=== PATIENT | male | born 1970 | race Caucasian/White ===

== ENCOUNTER 2020-08-23 13:38 | Observation (INO) | payer OTHER ==
[2020-08-23] MEDS ORDERED: HYDROmorphone 1 MG/ML Syringe IVPUSH ONE (14:00)
[2020-08-23] MEDS ORDERED: Propofol 200 MG/20 ML SDV ONE (14:18)
[2020-08-23] MEDS ORDERED: Midazolam 1 MG/ML 2 ML SDV ONE (14:18)
[2020-08-23] MEDS ORDERED: fentaNYL 250 MCG/5 ML SDV ONE ×2 (14:19→15:19)
[2020-08-23] MEDS ORDERED: HYDROmorphone 1 MG/ML Syringe IVPUSH PRN (14:24)
[2020-08-23] MEDS ORDERED: Sodium Chloride 0.9% 10 ML Syringe FLUSH PRN (14:24)
[2020-08-23] MEDS ORDERED: Sodium Chloride 0.9% 2.5 ML Syringe FLUSH PRN (14:24)
[2020-08-23] MEDS ORDERED: diphenhydrAMINE 50 MG/ML SDV IVPUSH PRN (14:24)
[2020-08-23] MEDS ORDERED: Sodium Chloride 0.9% 10 ML SDV IV PRN (14:24)
[2020-08-23] MEDS ORDERED: Ondansetron 4 MG/2 ML SDV IVPUSH PRN (14:24)
[2020-08-23] MEDS ORDERED: fentaNYL 100 MCG/2 ML SDV IVPUSH PRN (14:26)
[2020-08-23] MEDS ORDERED: hydrALAZINE 20 MG/ML SDV IVPUSH PRN (14:26)
[2020-08-23] MEDS ORDERED: Acetaminophen 1,000 MG in Premix Bag 1 BAG IV PRN (14:26)
--- NOTE | 2020-08-23 14:27 | PCM.HP.2 ---
H&P History of Present Illness - General Date of Service: 08/23/20 Admit Problem/Dx: Admission Diagnosis/Problem Admission Diagnosis/Problem Appendicitis Source of Information: Patient History Limitations: Reports: No Limitations - History of Present Illness Initial Comments - Free Text/Narative: Patient is a 50 year old male who presents with acute appendicitis. He was not feeling well yesterday and last evening he developed lower abdominal pain. He then became nauseated and started vomiting. He denies fevers and chills but complains of malaise. The pain is made worse with movement. He presented to an OSH. He had a leukocytosis with a left shift. He had elevated glucose and mildly elevated BUN. He had a CT scan that revealed acute appendicitis with no evidence of perforation. He was given IV zosyn and transferred here for surgery. - Related Data Allergies/Adverse Reactions: Allergies Allergy/AdvReac Type Severity Reaction Status Date / Time No Known Drug Allergies Allergy Other Verified 08/23/20 14:05 Home Medications: Home Meds hydroCHLOROthiazide [Hydrochlorothiazide] 25 mg PO DAILY 08/23/20 [History] lisinopriL [Lisinopril] 40 mg PO BID 08/23/20 [History] Past Medical History Cardiovascular History: Reports: Other (See Below) (Hypertension) Respiratory History: Reports: None Gastrointestinal History: Reports: None - Past Surgical History HEENT Surgical History: Reports: Other (See Below) (wisdom teeth removal) Social & Family History - Family History Cardiac: Reports: CAD, Hypertension Neurological: Reports: CVA - Tobacco Use Tobacco Use Status *Q: Never Tobacco User - Alcohol Use Alcohol Use History: Yes Days Per Week of Alcohol Use: 1 Number of Drinks Per Day: 3 Total Drinks Per Week: 3 H&P Review of Systems - Review of Systems: Review Of Systems: Comprehensive ROS is negative, except as noted in HPI. Exam - Exam Exam: See Below - Vital Signs Vital Signs: Last Vital Signs Temp 37.4 C 08/23/20 13:45 Pulse 114 H 08/23/20 13:45 Resp 18 08/23/20 13:45 BP 161/104 H 08/23/20 13:45 Pulse Ox 94 L 08/23/20 13:45 - Exam General: Alert, Oriented, Cooperative HEENT: Conjunctiva Clear, Mucosa Moist & [place], Posterior Pharynx Clear Neck: Supple, Trachea Midline Lungs: Clear to Auscultation, Normal Respiratory Effort Cardiovascular: Regular Rate, Regular Rhythm GI/Abdominal Exam: Soft, No Distention, Guarding (RLQ), Rebound (RLQ), Tender (RLQ) Extremities: Normal Inspection Sepsis Event Note - Evaluation Sepsis Screening Result: Sepsis Risk - Focused Exam Vital Signs: Vital Signs Temp Pulse Resp BP Pulse Ox 08/23/20 13:45 37.4 C 114 H 18 161/104 H 94 L - Problem List (1) Acute appendicitis SNOMED Code(s): 88467768 ICD Code: K35.80 - UNSPECIFIED ACUTE APPENDICITIS Status: Acute Current Visit: Yes Problem List Initiated/Reviewed/Updated: Yes Orders Last 24hrs: Active Orders 24 hr Category Date Time Status Patient Status [ADT] Routine ADT 08/23/20 14:24 Ordered Influenza Vaccine Charge [RC] .DISCHARGE Care 08/23/20 14:19 Active Notify Provider Vital Signs [RC] PRN Care 08/23/20 14:25 Ordered Oxygen Therapy [RC] PRN Care 08/23/20 14:24 Ordered RT Incentive Spirometry [RC] Q1HWA Care 08/23/20 14:24 Ordered Up ad Gloria [RC] ASDIRECTED Care 08/23/20 14:24 Ordered Vital Signs [RC] PER UNIT ROUTINE Care 08/23/20 14:24 Ordered NPO [Nothing Per Oral Diet] [DIET] Diet 08/23/20 Dinner Active CORONAVIRUS COVID-19 MALI [MOLEC] Stat Lab 08/23/20 13:36 Received Acetaminophen [Ofirmev] 1,000 mg Med 08/23/20 14:26 Ordered Premix Bag 1 bag IV Q6H Acetaminophen/oxyCODONE [Percocet 325-5 MG] Med 08/23/20 14:24 Ordered 2 tab PO Q4H PRN HYDROmorphone [Dilaudid] Med 08/23/20 14:24 Ordered 0.5 mg IVPUSH Q1H PRN Lactated Ringers @ 125 MLS/HR(1000ml) Med 08/23/20 14:30 Ordered Lactated Ringers [Ringers, Lactated] 1,000 ml IV ASDIRECTED Ondansetron [Zofran] Med 08/23/20 14:24 Ordered 4 mg IVPUSH Q6H PRN Pharmacy to Dose - InFluenza V [Pharmacy to Dose - Med 08/23/20 14:19 Once InFluenza Vaccine] 1 each IM ONETIME ONE Sodium Chloride 0.9% [Normal Saline] Med 08/23/20 14:24 Ordered 10 ml IV ASDIRECTED PRN Sodium Chloride 0.9% [Saline Flush] Med 08/23/20 14:24 Ordered 10 ml FLUSH ASDIRECTED PRN Sodium Chloride 0.9% [Saline Flush] Med 08/23/20 14:24 Ordered 2.5 ml FLUSH ASDIRECTED PRN diphenhydrAMINE [Benadryl] Med 08/23/20 14:24 Ordered 50 mg IVPUSH Q4H PRN fentaNYL [Sublimaze] Med 08/23/20 14:26 Ordered 50 mcg IVPUSH Q5M PRN hydrALAZINE [Apresoline] Med 08/23/20 14:26 Ordered 10 mg IVPUSH Q2H PRN Peripheral IV Insertion Adult [OM.PC] Urgent Oth 08/23/20 14:24 Ordered Resuscitation Status Routine Resus Stat 08/23/20 14:24 Ordered Medication Orders Influenza Virus Vaccine (Pharmacy To Dose - Influenza Vaccine) 1 each IM ONETIME ONE Stop: 08/23/20 14:20 Assessment/Plan Comment:: The patient and I discussed the pathophysiology of acute appendicitis. I explained the need for an appendectomy. I will attempt this laparoscopically but convert to open should I be unable to perform it safely. We discussed the post operative care regarding ruptured vs non-ruptured appendicitis. I discussed the risks including bleeding infection or damage to surrounding structures. He verbalized understanding and wishes to proceed.
[2020-08-23] MEDS ORDERED: Lactated Ringers 1,000 ML IV SCH ×2 (14:30→14:45)
[2020-08-23] MEDS ORDERED: FLU Vacc QS2020-21 36MOS UP/PF 60 MCG/0.5 ML Syringe IM ONE (14:30)
[2020-08-23] MEDS ORDERED: Bupivacaine 0.5% 10 ML SDV ONE (14:44)
[2020-08-23] MEDS ORDERED: Octyl 2-Cyanoacrylate 1 Tube ONE (14:44)
[2020-08-23] MEDS ORDERED: Naloxone 0.4 MG/ML Syringe ONE (16:05)
--- NOTE | 2020-08-23 16:19 | PCM.OPNOTE ---
- General Post-Op/Procedure Note Date of Surgery/Procedure: 08/23/20 Operative Procedure(s): Laparoscopic appendectomy Findings: grossly enlarged and inflamed appendix. Not ruptured. Pre Op Diagnosis: Appendicitis Post-Op Diagnosis: same Anesthesia Technique: General ET Tube Primary Surgeon: Kareen Ball Fluid Replacement, Intraop: 1,200 Output, Urine Amount: 1,000 EBL in mLs: 10 Condition: Good Free Text/Narrative:: Intake & Output 08/23/20 08/23/20 08/23/20 06:59 14:59 22:59 Output Total 1000 Balance -1000
--- NOTE | 2020-08-23 16:48 | PCM.POSTAN ---
POST ANESTHESIA ASSESSMENT - MENTAL STATUS Mental Status: Alert - VITAL SIGNS Vital Signs: Last Vital Signs Temp 37.4 C 08/23/20 13:45 Pulse 114 H 08/23/20 13:45 Resp 18 08/23/20 13:45 BP 161/104 H 08/23/20 13:45 Pulse Ox 94 L 08/23/20 13:45 - RESPIRATORY Respiratory Status: Respiratory Rate WNL - CARDIOVASCULAR CV Status: Pulse Rate WNL - GASTROINTESTINAL GI Status: No Symptoms - POST OP HYDRATION Hydration Status: Adequate & Stable
[2020-08-23] MEDS: Lisinopril 10 MG Tab PO SCH ×2 (17:16→22:09)
[2020-08-23] MEDS: Acetaminophen/oxyCODONE 325-5 MG Tab PO PRN (20:30)
[2020-08-23] MEDS ORDERED: Ketorolac 10 MG Tab PO PRN (22:00)
--- NOTE | 2020-08-23 23:58 | OR ---
SURGEON: KAREEN BALL MD DATE OF PROCEDURE: 08/23/2020 PREOPERATIVE DIAGNOSIS: Acute appendicitis. POSTOPERATIVE DIAGNOSIS: Acute appendicitis. PROCEDURE PERFORMED: Laparoscopic appendectomy. PRIMARY SURGEON: Kareen Blal MD ANESTHESIA: General endotracheal anesthesia. FLUIDS: 1200 mL crystalloid. URINE OUTPUT: 1000 mL. ESTIMATED BLOOD LOSS: 10 mL. FINDINGS: Grossly enlarged and inflamed appendix with no evidence of rupture. COMPLICATIONS: None. INDICATIONS: The patient is a 50-year-old male who presented to an outside emergency room with 1 day of abdominal pain. Workup revealed acute appendicitis. The patient and I discussed the pathophysiology of appendicitis and the need for an appendectomy. I explained I would attempt this laparoscopically, but convert to open should I be unable to perform it safely. I explained the expected perioperative course as well as the risks including bleeding, infection, or damage to surrounding structures. The patient verbalized understanding and wishes to proceed. PROCEDURE IN DETAIL: The patient was brought into the OR and placed on the OR table in supine position. A time-out was completed verifying the patient's name, age, date of , allergies, and procedure to be performed. General endotracheal anesthesia was induced. The left arm was tucked to the patient's side and a Duarte catheter placed. The abdomen was prepped and draped in usual standard fashion. I anesthetized an area 2 fingerbreadths below the left subcostal margin in the midclavicular line with 0.5% Marcaine plain. An 11 blade was used to make an incision in this area. Using a 5 mm optical trocar, I gained entry into the left upper quadrant under direct visualization. All layers of the abdominal wall were visualized upon entry. A 5 mm 30-degree scope was inserted into the abdomen and the abdomen was insufflated. I inspected the area underneath my initial trocar placement. No damage to surrounding structures was noted. A 5 mm trocar was placed just left and lateral to the umbilicus. A 12 mm trocar was placed under direct visualization in the left lower quadrant. The patient was placed into Trendelenburg position and airplaned slightly to the left. I turned my attention to the right lower quadrant. I had reviewed the patient's preoperative CT scan and the appendix appeared retrocecal. I identified the cecum and followed the tenia down to the base of the appendix. The appendix was retrocecal. I attempted to identify the tip of the appendix and bring it more anterior. However, I was unable to. Instead, I turned my attention to the base of the appendix. Using a [place] dissector, I created a window between the appendiceal mesentery and the base of the appendix. After doing this, I was then able to take Harmonic scalpel device and take down the appendiceal mesentery from proximal to distal. Once I had created a large enough window, an endoscopic stapling device was brought into the field. I stapled and transected across the base of the appendix using a 45 mm blue load of ceci. I then grasped the proximal appendix, elevated it, and continued my dissection along the appendiceal mesentery using the Harmonic scalpel device. Once the appendix was completely freed from the appendiceal mesentery, it was placed in an Endo Catch bag and removed through the 12 mm port site. I inspected the cut edge of my appendiceal mesentery and the staple line. The staple line appeared to be intact. The cut edge of the appendiceal mesentery was slightly oozy, but there was no sae bleeding. A piece of Surgicel was laid along this. This achieved hemostasis. I then turned my attention to the 12 mm trocar site. The 12 mm trocar was removed and I closed the fascia at the site with an interrupted 0 Vicryl suture using a Goyo-Gina device. The 5 mm trocars were removed under direct visualization and the abdomen allowed to desufflate. The 12 mm trocar site was closed with interrupted 3-0 Vicryl in the subcutaneous fat layer and the skin was closed with a running 4-0 Monocryl stitch. The 5 mm trocar sites were closed with running 4-0 Monocryl sutures. Dermabond and sterile dressings were applied. All counts were complete and correct at the end of the case. The patient was extubated and taken to the PACU in stable condition. ELNIA / ORACIO /[id number]
[2020-08-24] MEDS: Ketorolac 10 MG Tab PO SCH ×3 (08:11→20:52)
[2020-08-24] MEDS: Lisinopril 10 MG Tab PO SCH ×2 (08:13→20:52)
[2020-08-24] MEDS: Lactated Ringers 1,000 ML IV SCH ×4 (08:18→23:14)
[2020-08-24] MEDS: Piperacillin/Tazobactam 3.375 GM in Sodium Chloride 0.9% 50 ML IV SCH ×3 (09:29→20:50)
--- NOTE | 2020-08-24 09:34 | PCM.SURGPN ---
- General Info Date of Service: 08/24/20 Date of Surgery/Procedure: 08/23/20 POD#: 1 - Review of Systems General: Reports: Fever, Weakness, Fatigue, Night Sweats Pulmonary: Reports: No Symptoms Cardiovascular: Reports: No Symptoms Gastrointestinal: Reports: Abdominal Pain (along incisions ). Denies: Flatus, Nausea, Vomiting Genitourinary: Reports: No Symptoms Musculoskeletal: Reports: No Symptoms Skin: Reports: No Symptoms - Patient Data Vitals - Most Recent: Last Vital Signs Temp 38.9 C H 08/24/20 07:55 Pulse 117 H 08/24/20 07:55 Resp 16 08/24/20 07:55 BP 107/61 08/24/20 08:13 Pulse Ox 94 L 08/24/20 07:55 Weight - Most Recent: 100.2 kg I&O - Last 24 Hours: Intake & Output 08/23/20 08/24/20 08/24/20 22:59 06:59 14:59 Intake Total 2550 500 Output Total 2000 750 Balance 550 -250 Lab Results Last 24 Hrs: Laboratory Results - last 24 hr 08/23/20 08/24/20 Range/Units 13:36 08:23 WBC 13.80 H (4.0-11.0) K/uL RBC 4.84 (4.50-5.90) M/uL Hgb 13.9 (13.0-17.0) g/dL Hct 40.5 (38.0-50.0) % MCV 83.7 (80.0-98.0) fL MCH 28.7 (27.0-32.0) pg MCHC 34.3 (31.0-37.0) g/dL RDW Std Deviation 39.7 (28.0-62.0) fl RDW Coeff of Igor 13 (11.0-15.0) % Plt Count 214 (150-400) K/uL MPV 9.30 (7.40-12.00) fL Nucleated RBC % 0.0 /100WBC Nucleated RBCs # 0 K/uL SARS-CoV-2 RNA (MALI) NEGATIVE (NEGATIVE) Med Orders - Current: Current Medications Diphenhydramine HCl (Benadryl) 50 mg IVPUSH Q4H PRN PRN Reason: Itching Hydralazine HCl (Apresoline) 10 mg IVPUSH Q2H PRN PRN Reason: Hypertension Hydromorphone HCl (Dilaudid) 0.5 mg IVPUSH Q1H PRN PRN Reason: Pain (severe 7-10) Lactated Ringer's (Ringers, Lactated) 1,000 mls @ 1,000 mls/hr IV .BOLUS [facility] Last Admin: 08/24/20 08:18 Dose: 1,000 mls/hr Documented by: Piperacillin Sod/Tazobactam (Sod 3.375 gm/ Sodium Chloride) 50 mls @ 100 mls/hr IV Q6H [facility] Lactated Ringer's (Ringers, Lactated) 1,000 mls @ 125 mls/hr IV ASDIRECTED [facility] Ketorolac Tromethamine (Toradol) 10 mg PO Q6H [facility] Stop: 08/29/20 07:46 Last Admin: 08/24/20 08:11 Dose: 10 mg Documented by: Lisinopril (Prinivil) 40 mg PO BID [facility] Last Admin: 08/24/20 08:13 Dose: 40 mg Documented by: Ondansetron HCl (Zofran) 4 mg IVPUSH Q6H PRN PRN Reason: Nausea/Vomiting Oxycodone/Acetaminophen (Percocet 325-5 Mg) 2 tab PO Q4H PRN PRN Reason: Pain (moderate 4-6) Last Admin: 08/23/20 20:30 Dose: 2 tab Documented by: Sodium Chloride (Saline Flush) 10 ml FLUSH ASDIRECTED PRN PRN Reason: Keep Vein Open Sodium Chloride (Saline Flush) 2.5 ml FLUSH ASDIRECTED PRN PRN Reason: Keep Vein Open Sodium Chloride (Normal Saline) 10 ml IV ASDIRECTED PRN PRN Reason: IV Use Discontinued Medications Bupivacaine HCl (Sensorcaine-Mpf 0.5%) Confirm Administered Dose 10 ml .ROUTE .STK-MED ONE Stop: 08/23/20 14:45 Fentanyl (Sublimaze) Confirm Administered Dose 250 mcg .ROUTE .STK-MED ONE Stop: 08/23/20 14:20 Fentanyl (Sublimaze) 50 mcg IVPUSH Q5M PRN PRN Reason: Pain Fentanyl (Sublimaze) Confirm Administered Dose 250 mcg .ROUTE .STK-MED ONE Stop: 08/23/20 15:20 Hydromorphone HCl (Dilaudid) 0.5 mg IVPUSH ONETIME ONE Stop: 08/23/20 14:01 Last Admin: 08/23/20 14:29 Dose: 0.5 mg Documented by: Lactated Ringer's (Ringers, Lactated) 1,000 mls @ 125 mls/hr IV ASDIRECTED [facility] Acetaminophen 1,000 mg/ Premix 100 mls @ 400 mls/hr IV Q6H PRN PRN Reason: Pain Lactated Ringer's (Ringers, Lactated) 1,000 mls @ 125 mls/hr IV ASDIRECTED [facility] Influenza Virus Vaccine (Pharmacy To Dose - Influenza Vaccine) 1 each IM ONETIME ONE Stop: 08/23/20 14:20 Influenza Virus Vaccine (Afluria Quad (3yr Up)) 60 mcg IM .ONCE ONE Stop: 08/23/20 14:31 Ketorolac Tromethamine (Toradol) 10 mg PO Q6H PRN PRN Reason: Pain Stop: 08/28/20 22:01 Midazolam HCl (Versed 1 Mg/Ml) Confirm Administered Dose 2 mg .ROUTE .STK-MED ONE Stop: 08/23/20 14:19 Naloxone HCl (Narcan) Confirm Administered Dose 0 mg .ROUTE .STK-MED ONE Stop: 08/23/20 16:06 Octyl Cyanoacrylate (Dermabond Advance) Confirm Administered Dose 1 applic .ROUTE .STK-MED ONE Stop: 08/23/20 14:45 Propofol (Diprivan 20 Ml) Confirm Administered Dose 200 mg .ROUTE .STK-MED ONE Stop: 08/23/20 14:19 - Exam Wound/Incisions: Dressing Dry and Intact Quality Assessment: Supplemental Oxygen General: Alert, Oriented, Cooperative HEENT: Pupils Equal Lungs: Clear to Auscultation, Normal Respiratory Effort Cardiovascular: Tachycardia GI/Abdominal Exam: Soft, Non-Tender, Distended Extremities: Normal Inspection Skin: Warm, Dry, Intact Neurological: No New Focal Deficit Psy/Mental Status: Alert, Normal Affect, Normal Mood Sepsis Event Note - Evaluation Sepsis Screening Result: Sepsis Risk - Focused Exam Vital Signs: Vital Signs Temp Pulse Resp BP BP Pulse Ox 08/24/20 08:13 107/61 08/24/20 07:55 38.9 C H 117 H 16 107/61 94 L 08/24/20 04:00 37.3 C 111 H 16 106/58 L 95 08/23/20 22:37 36.5 C 118 H 18 94/54 L 96 08/23/20 22:09 92/55 L 08/23/20 21:35 37.6 C 124 H 16 88/54 L 94 L - Problem List & Annotations (1) Acute appendicitis SNOMED Code(s): 70454219 Code(s): K35.80 - UNSPECIFIED ACUTE APPENDICITIS Status: Acute Current Visit: Yes Qualifiers: Acute appendicitis type: with localized peritonitis Appendicitis gangrene presence: without gangrene Appendicitis perforation presence: without perforation Appendicitis abscess presence: without abscess Qualified Code(s): K35.30 - Acute appendicitis with localized peritonitis, without perforation or gangrene - Problem List Review Problem List Initiated/Reviewed/Updated: Yes - My Orders Last 24 Hours: Active Orders 24 hr Category Date Time Status Patient Status [ADT] Routine ADT 08/24/20 08:27 Active Influenza Vaccine Charge [RC] .DISCHARGE Care 08/23/20 14:19 Active Notify Provider Vital Signs [RC] PRN Care 08/23/20 14:25 Active Overnight Pulse Oximetry [RC] Click to Edit Care 08/23/20 16:49 Active Oxygen Therapy [RC] PRN Care 08/23/20 14:24 Active Pulse Oximetry [RC] ASDIRECTED Care 08/23/20 16:48 Active RT Incentive Spirometry [RC] Q1HWA Care 08/23/20 14:24 Active Up ad Gloria [RC] ASDIRECTED Care 08/23/20 14:24 Active Vital Signs [RC] Q4H Care 08/23/20 14:24 Active Regular Diet [DIET] Diet 08/23/20 Dinner Active Acetaminophen/oxyCODONE [Percocet 325-5 MG] Med 08/23/20 14:24 Active 2 tab PO Q4H PRN HYDROmorphone [Dilaudid] Med 08/23/20 14:24 Active 0.5 mg IVPUSH Q1H PRN Ketorolac [Toradol] Med 08/24/20 07:45 Active 10 mg PO Q6H Lactated Ringers [Ringers, Lactated] 1,000 ml Med 08/24/20 07:45 Active IV .BOLUS Lactated Ringers [Ringers, Lactated] 1,000 ml Med 08/24/20 08:30 Active IV ASDIRECTED Ondansetron [Zofran] Med 08/23/20 14:24 Active 4 mg IVPUSH Q6H PRN Piperacillin/Tazobactam [Piperacil-Tazobact] 3.375 gm Med 08/24/20 08:30 Active Sodium Chloride 0.9% [Normal Saline] 50 ml IV Q6H Sodium Chloride 0.9% [Normal Saline] Med 08/23/20 14:24 Active 10 ml IV ASDIRECTED PRN Sodium Chloride 0.9% [Saline Flush] Med 08/23/20 14:24 Active 10 ml FLUSH ASDIRECTED PRN Sodium Chloride 0.9% [Saline Flush] Med 08/23/20 14:24 Active 2.5 ml FLUSH ASDIRECTED PRN diphenhydrAMINE [Benadryl] Med 08/23/20 14:24 Active 50 mg IVPUSH Q4H PRN hydrALAZINE [Apresoline] Med 08/23/20 14:26 Active 10 mg IVPUSH Q2H PRN lisinopriL [Prinivil] Med 08/23/20 16:30 Active 40 mg PO BID Peripheral IV Insertion Adult [OM.PC] Urgent Oth 08/23/20 14:24 Ordered Resuscitation Status Routine Resus Stat 08/23/20 14:24 Ordered Medication Orders Diphenhydramine HCl (Benadryl) 50 mg IVPUSH Q4H PRN PRN Reason: Itching Hydralazine HCl (Apresoline) 10 mg IVPUSH Q2H PRN PRN Reason: Hypertension Hydromorphone HCl (Dilaudid) 0.5 mg IVPUSH Q1H PRN PRN Reason: Pain (severe 7-10) Lactated Ringer's (Ringers, Lactated) 1,000 mls @ 1,000 mls/hr IV .BOLUS [facility] Last Admin: 08/24/20 08:18 Dose: 1,000 mls/hr Documented by: KELIN Piperacillin Sod/Tazobactam (Sod 3.375 gm/ Sodium Chloride) 50 mls @ 100 mls/hr IV Q6H [facility] Lactated Ringer's (Ringers, Lactated) 1,000 mls @ 125 mls/hr IV ASDIRECTED [facility] Ketorolac Tromethamine (Toradol) 10 mg PO Q6H [facility] Stop: 08/29/20 07:46 Last Admin: 08/24/20 08:11 Dose: 10 mg Documented by: KELIN Lisinopril (Prinivil) 40 mg PO BID [facility] Last Admin: 08/24/20 08:13 Dose: 40 mg Documented by: Admin: 08/23/20 22:09 Dose: Not Given Documented by: Admin: 08/23/20 17:16 Dose: 40 mg Documented by: CHRISTIE Ondansetron HCl (Zofran) 4 mg IVPUSH Q6H PRN PRN Reason: Nausea/Vomiting Oxycodone/Acetaminophen (Percocet 325-5 Mg) 2 tab PO Q4H PRN PRN Reason: Pain (moderate 4-6) Last Admin: 08/23/20 20:30 Dose: 2 tab Documented by: [id number] Sodium Chloride (Saline Flush) 10 ml FLUSH ASDIRECTED PRN PRN Reason: Keep Vein Open Sodium Chloride (Saline Flush) 2.5 ml FLUSH ASDIRECTED PRN PRN Reason: Keep Vein Open Sodium Chloride (Normal Saline) 10 ml IV ASDIRECTED PRN PRN Reason: IV Use - Assessment Assessment (Free Text/Narrative):: Patient is a 50-year-old male who underwent an uncomplicated endoscopic appendectomy for nonruptured appendicitis yesterday. Overnight he was tachycardic with soft blood pressures. This morning he spiked a fever of 38.9. A CBC was drawn which showed his white count is improving at 13.8 down from 16,000. Given his fever and tachycardia and slightly low blood pressures I gave him a 1 L bolus of LR, and restarted his IV antibiotics. Had adequate uop overnight. I scheduled his Toradol to be given every 6 hours. I asked that he be given Percocet this morning as that has Tylenol in it. He was on 3 L nasal cannula last night but has not gotten out of bed since surgery. I encouraged him to be out of bed and moving. His nurse did have him use his incentive spirometer and made him use it. He is tolerating a regular diet and denies any nausea or vomiting. He is slightly bloated and has not yet passed any flatus. On physical exam he has no abdominal tenderness other than over his incision sites. Likely the patient is bacteremic from the surgery. Will keep the patient today and switch him from same day to observation. Pain: Scheduled Toradol q 6hr. Percocet. IV dilaudid only for severe pain. CV/Pulm: BP improved with fluid bolus. Ok to hold am BP meds if necessary (SBP <110). Encourage IS use, oob activity and wean off oxygen. GI: regular diet as tolerated. LR @125ml/hr Renal: UOP adequate. ID: WBC improving but not normal yet. IV zosyn. Will likely transition to oral antibiotics for discharge. Heme: Stable Px: SCDs
[2020-08-24] MEDS: Acetaminophen/oxyCODONE 325-5 MG Tab PO PRN ×2 (11:07→20:51)
--- NOTE | 2020-08-24 12:59 | PCM48HPAN ---
Post Anesthesia Note - EVALUATION WITHIN 48HRS OF ANESTHETIC Vital Signs in Normal Range: Yes Patient Participated in Evaluation: Yes Respiratory Function Stable: Yes Airway Patent: Yes Cardiovascular Function Stable: Yes Hydration Status Stable: Yes (states he is working on hydrating himself more) Pain Control Satisfactory: Yes Nausea and Vomiting Control Satisfactory: Yes Mental Status Recovered: Yes Vital Signs: Last Vital Signs Temp 38.4 C H 08/24/20 09:55 Pulse 117 H 08/24/20 07:55 Resp 16 08/24/20 07:55 BP 107/61 08/24/20 08:13 Pulse Ox 94 L 08/24/20 07:55 - COMMENTS/OBSERVATIONS Free Text/Narrative:: states will be going home tomorrow
[2020-08-25] MEDS: Ketorolac 10 MG Tab PO SCH ×4 (01:36→19:18)
[2020-08-25] MEDS: Piperacillin/Tazobactam 3.375 GM in Sodium Chloride 0.9% 50 ML IV SCH ×2 (01:42→08:15)
[2020-08-25] MEDS: Lisinopril 10 MG Tab PO SCH ×2 (08:15→20:31)
[2020-08-25] MEDS: Lactated Ringers 1,000 ML IV SCH (09:11)
[2020-08-25] MEDS ORDERED: FLU Vacc QS2020-21 36MOS UP/PF 60 MCG/0.5 ML Syringe IM ONE (10:00)
[2020-08-25] MEDS: Acetaminophen/oxyCODONE 325-5 MG Tab PO PRN ×3 (11:08→20:31)
[2020-08-25] MEDS: metroNIDAZOLE 250 MG Tab PO SCH ×2 (12:43→17:26)
[2020-08-25] MEDS: Ciprofloxacin 500 MG Tab PO SCH (20:25)
[2020-08-26] MEDS: Acetaminophen/oxyCODONE 325-5 MG Tab PO PRN ×2 (04:42→12:07)
[2020-08-26] MEDS: Ketorolac 10 MG Tab PO SCH ×2 (04:44→08:16)
[2020-08-26] MEDS: metroNIDAZOLE 250 MG Tab PO SCH ×2 (04:45→06:29)
--- NOTE | 2020-08-26 07:53 | PCM.DCSUM1 ---
Discharge Summary - Hospital Course Free Text/Narrative:: Patient is a 50-year-old male who presented to an outside hospital with right lower quadrant pain. CT scan and workup revealed acute appendicitis. He was transferred to our facility for management. The patient was taken to the operating room for a laparoscopic possible open appendectomy. The case was uncomplicated. His appendix was dilated and inflamed but not perforated. In the immediate postoperative period the patient did well however overnight the luigi ent developed fevers chills diaphoresis as well as tachycardia and slightly soft blood pressures. A repeat CBC was performed which showed his white count had come down from 16,000-13,000. Given his fevers however he was started back on IV antibiotics. Over the next 24 hours the patient had intermittent fevers. On postop day 2 his white blood cell count was normal. He was transitioned to oral antibiotics. Over the past 24 hours his vital signs have been stable and he has had no fevers chills diaphoresis or malaise. Immediately postoperatively he was allowed to have a regular diet but did not have much of an appetite. He tolerated small bites of food without any nausea or vomiting. On postop day 2 his appetite had improved. His pain was well controlled on Percocet and scheduled Toradol. On postop day 2 he had return of bowel function. He was cleared for discharge. - Discharge Data Discharge Date: 08/26/20 Discharge Disposition: Home, Self-Care 01 Condition: Good - Referral to Home Health Primary Care Physician: PCP None - Discharge Diagnosis/Problem(s) (1) Acute appendicitis SNOMED Code(s): 62879847 ICD Code: K35.80 - UNSPECIFIED ACUTE APPENDICITIS Status: Acute Current Visit: Yes Qualifiers: Acute appendicitis type: with localized peritonitis Appendicitis gangrene presence: without gangrene Appendicitis perforation presence: without perforation Appendicitis abscess presence: without abscess Qualified Code(s): K35.30 - Acute appendicitis with localized peritonitis, without perforation or gangrene - Patient Summary/Data Operative Procedure(s) Performed: Laparoscopic appendectomy - Patient Instructions Diet: Regular Diet as Tolerated, Drink 8-10+ Glasses/Day Activity: No Lifting Over 20 Pounds (for four weeks), Rest and Relax Today Driving: Do Not Drive Showering/Bathing: No Showering (for 2 days), No Tub Bathing/Swimming (for 2 weeks ) Wound/Incision Care: Keep Operative Site/Wound Site Clean and Dry Notify Provider of: Fever, Increased Pain, Swelling and Redness, Drainage, Nausea and/or Vomiting - Discharge Plan *PRESCRIPTION DRUG MONITORING PROGRAM REVIEWED*: Yes *COPY OF PRESCRIPTION DRUG MONITORING REPORT IN PATIENT DEAN: Yes Prescriptions/Med Rec: Ciprofloxacin [Ciprofloxacin HCl] 500 mg PO BID #6 tablet metroNIDAZOLE 250 mg PO Q6H #12 tablet Home Medications: Home Meds hydroCHLOROthiazide [Hydrochlorothiazide] 25 mg PO DAILY 08/23/20 [History] lisinopriL [Lisinopril] 40 mg PO BID 08/23/20 [History] Ciprofloxacin [Ciprofloxacin HCl] 500 mg PO BID #6 tablet 08/26/20 [Rx] metroNIDAZOLE 250 mg PO Q6H #12 tablet 08/26/20 [Rx] Patient Handouts: Appendicitis, Adult, Laparoscopic Appendectomy, Adult, Care After, [id number], Ciprofloxacin tablets, Metronidazole tablets or capsules, Sepsis, Self Care, Adult Referrals: Kareen Ball MD [Physician] - 09/07/20 10:00 am (Please arrive 15mins early, bring ID, insurance info and own mask.) - Discharge Summary/Plan Comment DC Time >30 min.: No - General Info Date of Service: 08/26/20 Functional Status: Reports: Pain Controlled, Tolerating Diet, Ambulating, Urinating. Denies: New Symptoms - Review of Systems General: Reports: No Symptoms HEENT: Reports: No Symptoms Pulmonary: Reports: No Symptoms Cardiovascular: Reports: No Symptoms Gastrointestinal: Reports: No Symptoms Genitourinary: Reports: No Symptoms Musculoskeletal: Reports: No Symptoms - Patient Data Vitals - Most Recent: Last Vital Signs Temp 36.9 C 08/26/20 04:42 Pulse 91 08/26/20 04:42 Resp 17 08/26/20 04:42 BP 149/92 H 08/26/20 04:42 Pulse Ox 96 08/26/20 04:42 Weight - Most Recent: 100.2 kg I&O - Last 24 hours: Intake & Output 08/25/20 08/26/20 08/26/20 22:59 06:59 14:59 Intake Total 710 1850 Output Total 1400 2075 Balance -690 -225 Lab Results - Last 24 hrs: Laboratory Results - last 24 hr 08/25/20 Range/Units 08:02 WBC 7.21 (4.0-11.0) K/uL RBC 4.62 (4.50-5.90) M/uL Hgb 13.2 (13.0-17.0) g/dL Hct 37.2 L (38.0-50.0) % MCV 80.5 (80.0-98.0) fL MCH 28.6 (27.0-32.0) pg MCHC 35.5 (31.0-37.0) g/dL RDW Std Deviation 37.0 (28.0-62.0) fl RDW Coeff of Igor 13 (11.0-15.0) % Plt Count 162 (150-400) K/uL MPV 9.50 (7.40-12.00) fL Nucleated RBC % 0.0 /100WBC Nucleated RBCs # 0 K/uL Med Orders - Current: Current Medications Ciprofloxacin (Ciprofloxacin Hcl) 500 mg PO BID [facility] Last Admin: 08/25/20 20:25 Dose: 500 mg Documented by: Diphenhydramine HCl (Benadryl) 50 mg IVPUSH Q4H PRN PRN Reason: Itching Hydralazine HCl (Apresoline) 10 mg IVPUSH Q2H PRN PRN Reason: Hypertension Hydromorphone HCl (Dilaudid) 0.5 mg IVPUSH Q1H PRN PRN Reason: Pain (severe 7-10) Ketorolac Tromethamine (Toradol) 10 mg PO Q6H [facility] Stop: 08/29/20 07:46 Last Admin: 08/26/20 04:44 Dose: Not Given Documented by: Lisinopril (Prinivil) 40 mg PO BID [facility] Last Admin: 08/25/20 20:31 Dose: 40 mg Documented by: Metronidazole (Metronidazole) 250 mg PO Q6H [facility] Last Admin: 08/26/20 06:29 Dose: 250 mg Documented by: Ondansetron HCl (Zofran) 4 mg IVPUSH Q6H PRN PRN Reason: Nausea/Vomiting Oxycodone/Acetaminophen (Percocet 325-5 Mg) 2 tab PO Q4H PRN PRN Reason: Pain (moderate 4-6) Last Admin: 08/26/20 04:42 Dose: 2 tab Documented by: Sodium Chloride (Saline Flush) 10 ml FLUSH ASDIRECTED PRN PRN Reason: Keep Vein Open Sodium Chloride (Saline Flush) 2.5 ml FLUSH ASDIRECTED PRN PRN Reason: Keep Vein Open Sodium Chloride (Normal Saline) 10 ml IV ASDIRECTED PRN PRN Reason: IV Use Discontinued Medications Bupivacaine HCl (Sensorcaine-Mpf 0.5%) Confirm Administered Dose 10 ml .ROUTE .STK-MED ONE Stop: 08/23/20 14:45 Fentanyl (Sublimaze) Confirm Administered Dose 250 mcg .ROUTE .STK-MED ONE Stop: 08/23/20 14:20 Fentanyl (Sublimaze) 50 mcg IVPUSH Q5M PRN PRN Reason: Pain Fentanyl (Sublimaze) Confirm Administered Dose 250 mcg .ROUTE .STK-MED ONE Stop: 08/23/20 15:20 Hydromorphone HCl (Dilaudid) 0.5 mg IVPUSH ONETIME ONE Stop: 08/23/20 14:01 Last Admin: 08/23/20 14:29 Dose: 0.5 mg Documented by: Lactated Ringer's (Ringers, Lactated) 1,000 mls @ 125 mls/hr IV ASDIRECTED [facility] Acetaminophen 1,000 mg/ Premix 100 mls @ 400 mls/hr IV Q6H PRN PRN Reason: Pain Lactated Ringer's (Ringers, Lactated) 1,000 mls @ 125 mls/hr IV ASDIRECTED ALIRE[facility] Lactated Ringer's (Ringers, Lactated) 1,000 mls @ 1,000 mls/hr IV .BOLUS [facility] Last Infusion: 08/24/20 09:18 Dose: Infused Documented by: Piperacillin Sod/Tazobactam (Sod 3.375 gm/ Sodium Chloride) 50 mls @ 100 mls/hr IV Q6H [facility] Last Admin: 08/25/20 08:15 Dose: 100 mls/hr Documented by: Lactated Ringer's (Ringers, Lactated) 1,000 mls @ 125 mls/hr IV ASDIRECTED [facility] Last Admin: 08/25/20 09:11 Dose: 125 mls/hr Documented by: Influenza Virus Vaccine (Pharmacy To Dose - Influenza Vaccine) 1 each IM ONETIME ONE Stop: 08/23/20 14:20 Influenza Virus Vaccine (Afluria Quad 2019- (3yr Up)) 60 mcg IM .ONCE ONE Stop: 08/23/20 14:31 Last Admin: 08/24/20 12:32 Dose: Not Given Documented by: Influenza Virus Vaccine (Afluria Quad 2019- (3yr Up)) 60 mcg IM .ONCE ONE Stop: 08/25/20 10:01 Ketorolac Tromethamine (Toradol) 10 mg PO Q6H PRN PRN Reason: Pain Stop: 08/28/20 22:01 Midazolam HCl (Versed 1 Mg/Ml) Confirm Administered Dose 2 mg .ROUTE .STK-MED ONE Stop: 08/23/20 14:19 Naloxone HCl (Narcan) Confirm Administered Dose 0 mg .ROUTE .STK-MED ONE Stop: 08/23/20 16:06 Octyl Cyanoacrylate (Dermabond Advance) Confirm Administered Dose 1 applic .ROUTE .STK-MED ONE Stop: 08/23/20 14:45 Propofol (Diprivan 20 Ml) Confirm Administered Dose 200 mg .ROUTE .STK-MED ONE Stop: 08/23/20 14:19 - Exam General: Reports: Alert, Oriented, Cooperative HEENT: Reports: Pupils Equal, Pupils Reactive Lungs: Reports: Normal Respiratory Effort Cardiovascular: Reports: Regular Rate GI/Abdominal Exam: Soft, Non-Tender, No Distention, No Mass Extremities: Normal Inspection Skin: Reports: Warm, Dry, Intact Wound/Incisions: Reports: Healing Well
--- NOTE | 2020-08-26 07:53 | PCM.SURGPN ---
- General Info Date of Service: 08/25/20 Date of Surgery/Procedure: 08/23/20 POD#: 2 - Review of Systems General: Reports: Fever, Fatigue, Malaise HEENT: Reports: Headaches Pulmonary: Reports: No Symptoms Cardiovascular: Reports: No Symptoms Gastrointestinal: Reports: No Symptoms Genitourinary: Reports: No Symptoms Musculoskeletal: Reports: No Symptoms Skin: Reports: No Symptoms - Patient Data Vitals - Most Recent: Last Vital Signs Temp 36.9 C 08/26/20 04:42 Pulse 91 08/26/20 04:42 Resp 17 08/26/20 04:42 BP 149/92 H 08/26/20 04:42 Pulse Ox 96 08/26/20 04:42 Weight - Most Recent: 100.2 kg I&O - Last 24 Hours: Intake & Output 08/25/20 08/26/20 08/26/20 22:59 06:59 14:59 Intake Total 710 1850 Output Total 1400 2075 Balance -690 -225 Lab Results Last 24 Hrs: Laboratory Results - last 24 hr 08/25/20 Range/Units 08:02 WBC 7.21 (4.0-11.0) K/uL RBC 4.62 (4.50-5.90) M/uL Hgb 13.2 (13.0-17.0) g/dL Hct 37.2 L (38.0-50.0) % MCV 80.5 (80.0-98.0) fL MCH 28.6 (27.0-32.0) pg MCHC 35.5 (31.0-37.0) g/dL RDW Std Deviation 37.0 (28.0-62.0) fl RDW Coeff of Igor 13 (11.0-15.0) % Plt Count 162 (150-400) K/uL MPV 9.50 (7.40-12.00) fL Nucleated RBC % 0.0 /100WBC Nucleated RBCs # 0 K/uL Med Orders - Current: Current Medications Ciprofloxacin (Ciprofloxacin Hcl) 500 mg PO BID [facility] Last Admin: 08/25/20 20:25 Dose: 500 mg Documented by: Diphenhydramine HCl (Benadryl) 50 mg IVPUSH Q4H PRN PRN Reason: Itching Hydralazine HCl (Apresoline) 10 mg IVPUSH Q2H PRN PRN Reason: Hypertension Hydromorphone HCl (Dilaudid) 0.5 mg IVPUSH Q1H PRN PRN Reason: Pain (severe 7-10) Ketorolac Tromethamine (Toradol) 10 mg PO Q6H [facility] Stop: 08/29/20 07:46 Last Admin: 08/26/20 04:44 Dose: Not Given Documented by: Lisinopril (Prinivil) 40 mg PO BID [facility] Last Admin: 08/25/20 20:31 Dose: 40 mg Documented by: Metronidazole (Metronidazole) 250 mg PO Q6H [facility] Last Admin: 08/26/20 06:29 Dose: 250 mg Documented by: Ondansetron HCl (Zofran) 4 mg IVPUSH Q6H PRN PRN Reason: Nausea/Vomiting Oxycodone/Acetaminophen (Percocet 325-5 Mg) 2 tab PO Q4H PRN PRN Reason: Pain (moderate 4-6) Last Admin: 08/26/20 04:42 Dose: 2 tab Documented by: Sodium Chloride (Saline Flush) 10 ml FLUSH ASDIRECTED PRN PRN Reason: Keep Vein Open Sodium Chloride (Saline Flush) 2.5 ml FLUSH ASDIRECTED PRN PRN Reason: Keep Vein Open Sodium Chloride (Normal Saline) 10 ml IV ASDIRECTED PRN PRN Reason: IV Use Discontinued Medications Bupivacaine HCl (Sensorcaine-Mpf 0.5%) Confirm Administered Dose 10 ml .ROUTE .STK-MED ONE Stop: 08/23/20 14:45 Fentanyl (Sublimaze) Confirm Administered Dose 250 mcg .ROUTE .STK-MED ONE Stop: 08/23/20 14:20 Fentanyl (Sublimaze) 50 mcg IVPUSH Q5M PRN PRN Reason: Pain Fentanyl (Sublimaze) Confirm Administered Dose 250 mcg .ROUTE .STK-MED ONE Stop: 08/23/20 15:20 Hydromorphone HCl (Dilaudid) 0.5 mg IVPUSH ONETIME ONE Stop: 08/23/20 14:01 Last Admin: 08/23/20 14:29 Dose: 0.5 mg Documented by: Lactated Ringer's (Ringers, Lactated) 1,000 mls @ 125 mls/hr IV ASDIRECTED [facility] Acetaminophen 1,000 mg/ Premix 100 mls @ 400 mls/hr IV Q6H PRN PRN Reason: Pain Lactated Ringer's (Ringers, Lactated) 1,000 mls @ 125 mls/hr IV ASDIRECTED [facility] Lactated Ringer's (Ringers, Lactated) 1,000 mls @ 1,000 mls/hr IV .BOLUS [facility] Last Infusion: 08/24/20 09:18 Dose: Infused Documented by: Piperacillin Sod/Tazobactam (Sod 3.375 gm/ Sodium Chloride) 50 mls @ 100 mls/hr IV Q6H [facility] Last Admin: 08/25/20 08:15 Dose: 100 mls/hr Documented by: Lactated Ringer's (Ringers, Lactated) 1,000 mls @ 125 mls/hr IV ASDIRECTED [facility] Last Admin: 08/25/20 09:11 Dose: 125 mls/hr Documented by: Influenza Virus Vaccine (Pharmacy To Dose - Influenza Vaccine) 1 each IM ONETIME ONE Stop: 08/23/20 14:20 Influenza Virus Vaccine (Afluria Quad 2020-21 (3yr Up)) 60 mcg IM .ONCE ONE Stop: 08/23/20 14:31 Last Admin: 08/24/20 12:32 Dose: Not Given Documented by: Influenza Virus Vaccine (Afluria Quad 2020-21 (3yr Up)) 60 mcg IM .ONCE ONE Stop: 08/25/20 10:01 Ketorolac Tromethamine (Toradol) 10 mg PO Q6H PRN PRN Reason: Pain Stop: 08/28/20 22:01 Midazolam HCl (Versed 1 Mg/Ml) Confirm Administered Dose 2 mg .ROUTE .STK-MED ONE Stop: 08/23/20 14:19 Naloxone HCl (Narcan) Confirm Administered Dose 0 mg .ROUTE .STK-MED ONE Stop: 08/23/20 16:06 Octyl Cyanoacrylate (Dermabond Advance) Confirm Administered Dose 1 applic .ROUTE .STK-MED ONE Stop: 08/23/20 14:45 Propofol (Diprivan 20 Ml) Confirm Administered Dose 200 mg .ROUTE .STK-MED ONE Stop: 08/23/20 14:19 - Exam Wound/Incisions: Healing Well, Dressing Dry and Intact General: Alert, Oriented HEENT: Scleral Icterus Lungs: Clear to Auscultation, Normal Respiratory Effort Cardiovascular: Regular Rate, Regular Rhythm GI/Abdominal Exam: Soft, Non-Tender, No Distention, No Mass Skin: Warm, Dry, Intact Sepsis Event Note - Evaluation Sepsis Screening Result: No Definite Risk - Focused Exam Vital Signs: Vital Signs Temp Pulse Resp BP BP Pulse Ox 08/26/20 04:42 36.9 C 91 17 149/92 H 96 08/26/20 00:00 36.3 C 90 17 149/95 H 95 08/25/20 20:35 37.1 C 93 18 149/94 H 96 08/25/20 20:31 149/94 H - Problem List & Annotations (1) Acute appendicitis SNOMED Code(s): 90129866 Code(s): K35.80 - UNSPECIFIED ACUTE APPENDICITIS Status: Acute Current Visit: Yes Qualifiers: Acute appendicitis type: with localized peritonitis Appendicitis gangrene presence: without gangrene Appendicitis perforation presence: without perforation Appendicitis abscess presence: without abscess Qualified Code(s): K35.30 - Acute appendicitis with localized peritonitis, without perforation or gangrene - Problem List Review Problem List Initiated/Reviewed/Updated: Yes - My Orders Last 24 Hours: Active Orders 24 hr Category Date Time Status Ready for Discharge [RC] PER UNIT ROUTINE Care 08/26/20 07:52 Ordered Ciprofloxacin [Ciprofloxacin HCl] Med 08/25/20 21:00 Active 500 mg PO BID metroNIDAZOLE Med 08/25/20 12:15 Active 250 mg PO Q6H Medication Orders Ciprofloxacin (Ciprofloxacin Hcl) 500 mg PO BID [facility] Last Admin: 08/25/20 20:25 Dose: 500 mg Documented by: FOZIA Diphenhydramine HCl (Benadryl) 50 mg IVPUSH Q4H PRN PRN Reason: Itching Hydralazine HCl (Apresoline) 10 mg IVPUSH Q2H PRN PRN Reason: Hypertension Hydromorphone HCl (Dilaudid) 0.5 mg IVPUSH Q1H PRN PRN Reason: Pain (severe 7-10) Ketorolac Tromethamine (Toradol) 10 mg PO Q6H [facility] Stop: 08/29/20 07:46 Last Admin: 08/26/20 04:44 Dose: Not Given Documented by: Admin: 08/25/20 19:18 Dose: 10 mg Documented by: Admin: 08/25/20 12:48 Dose: 10 mg Documented by: Admin: 08/25/20 08:14 Dose: 10 mg Documented by: Admin: 08/25/20 01:36 Dose: 10 mg Documented by: Admin: 08/24/20 20:52 Dose: 10 mg Documented by: Admin: 08/24/20 13:25 Dose: 10 mg Documented by: Admin: 08/24/20 08:11 Dose: 10 mg Documented by: KELIN Lisinopril (Prinivil) 40 mg PO BID [facility] Last Admin: 08/25/20 20:31 Dose: 40 mg Documented by: Admin: 08/25/20 08:15 Dose: 40 mg Documented by: Admin: 08/24/20 20:52 Dose: 40 mg Documented by: Admin: 08/24/20 08:13 Dose: 40 mg Documented by: Admin: 08/23/20 22:09 Dose: Not Given Documented by: Admin: 08/23/20 17:16 Dose: 40 mg Documented by: CHRISTIE Metronidazole (Metronidazole) 250 mg PO Q6H [facility] Admin: 08/26/20 06:29 Dose: 250 mg Documented by: Admin: 08/26/20 04:45 Dose: Not Given Documented by: Admin: 08/25/20 17:26 Dose: 250 mg Documented by: Admin: 08/25/20 12:43 Dose: 250 mg Documented by: KELIN Ondansetron HCl (Zofran) 4 mg IVPUSH Q6H PRN PRN Reason: Nausea/Vomiting Oxycodone/Acetaminophen (Percocet 325-5 Mg) 2 tab PO Q4H PRN PRN Reason: Pain (moderate 4-6) Last Admin: 08/26/20 04:42 Dose: 2 tab Documented by: Admin: 08/25/20 20:31 Dose: 2 tab Documented by: Admin: 08/25/20 15:26 Dose: 2 tab Documented by: Admin: 08/25/20 11:08 Dose: 2 tab Documented by: Admin: 08/24/20 20:51 Dose: 2 tab Documented by: Admin: 08/24/20 11:07 Dose: 2 tab Documented by: Admin: 08/23/20 20:30 Dose: 2 tab Documented by: [id number] Sodium Chloride (Saline Flush) 10 ml FLUSH ASDIRECTED PRN PRN Reason: Keep Vein Open Sodium Chloride (Saline Flush) 2.5 ml FLUSH ASDIRECTED PRN PRN Reason: Keep Vein Open Sodium Chloride (Normal Saline) 10 ml IV ASDIRECTED PRN PRN Reason: IV Use - Plan Plan (Free Text/Narrative):: Patient had another fever this morning. His fevers are associated with mild tachycardia as well as malaise headaches and diaphoresis. His white blood cell count this morning was normal. Will transition to Cipro and Flagyl. The patient is having adequate urine output. He is tolerating regular diet and drinking plenty of fluids. We'll stop his IV fluids. His physical exam is benign. Before discharge he will need to be without a fever for 24 hours. Will continue to monitor throughout the day.
[2020-08-26] MEDS: Lisinopril 10 MG Tab PO SCH (08:15)
[2020-08-26] MEDS: Ciprofloxacin 500 MG Tab PO SCH (08:16)
[2020-08-26] MEDS ORDERED: Lisinopril 10 MG Tab ONE (08:21)
[2020-08-26] MEDS ORDERED: FLU Vacc QS2020-21 36MOS UP/PF 60 MCG/0.5 ML Syringe IM ONE (12:15)
== END 2020-08-26 12:20 | disposition home or self-care (01) ==
LOC: MW.MS 13:38 → MW.SDS 13:38 → MW.MS 08-24 10:07
PROVIDERS: ADMIT Surgery; ATTEND Surgery
DX: K35.80 Unspecified acute appendicitis (principal); Z23 Encounter for immunization; Z01.812 Encounter for preprocedural laboratory examination; Z20.828 Contact with and (suspected) exposure to other viral communicable diseases
CPT/HCPCS: 36415; 44970; 85027; 87635; 88304; 90471; 90686; A9270; J1170; J2250; J2543; J2704; J3010; J3490; J7050; J7120; G0008; U0002